=== PATIENT | male | born 1995 | race Caucasian/White ===

== ENCOUNTER 2016-10-13 02:47 | Emergency (ER) | payer OTHER, BC ==
[2016-10-13] MEDS ORDERED: Sodium Chloride 0.9% 10 ML Syringe FLUSH PRN (02:52)
--- NOTE | 2016-10-13 02:52 | EDM.PDOC ---
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 at close follow up with regular provider. Note CPK elevation as above but no direct evidence of significant rhabdomyolysis. Qualifiers: Hematuria type: asymptomatic microscopic Qualified Code(s): R31.21 - Asymptomatic microscopic hematuria - Problem List Review Problem List Initiated/Reviewed/Updated: Yes - My Orders Last 24 Hours: My Active Orders 10/13/16 02:52 Cardiac Monitoring [RC] . DIRECTED EKG Documentation Completion [RC] ASDIRECTED Oxygen Therapy, ED [RC] CONTINUOUS Peripheral IV Care [RC] . DIRECTED Pulse Oximetry [RC] CONTINUOUS Up With Assistance [RC] PFP Vital Signs [RC] PFP Cervical Spine 1V [CR] Stat Cervical Spine wo Cont [CT] Stat Chest 1V Frontal [CR] Stat Head wo Cont [CT] Stat Lumbar Spine 1V [CR] Stat Max Facial Sinus wo Cont [CT] Stat Pelvis 1V or 2V [CR] Stat Sodium Chloride 0.9% [Saline Flush] 10 ml FLUSH ASDIRECTED PRN Obtain Past Medical Record [OM.PC] Urgent Peripheral IV Insertion Adult [OM.PC] Stat Resuscitation Status Stat EKG 12 Lead [EK] Stat 10/13/16 02:57 Vaccines to be Administered [RC] PER UNIT ROUTINE 10/13/16 02:58 Forearm 2V Lt [CR] Stat 10/13/16 05:15 CULTURE URINE [RM] Urgent 10/13/16 Breakfast Nothing per Oral Now Diet [DIET] - Assessment/Plan Last 24 Hours: My Active Orders 10/13/16 02:52 Cardiac Monitoring [RC] . DIRECTED EKG Documentation Completion [RC] ASDIRECTED Oxygen Therapy, ED [RC] CONTINUOUS Peripheral IV Care [RC] . DIRECTED Pulse Oximetry [RC] CONTINUOUS Up With Assistance [RC] PFP Vital Signs [RC] PFP Cervical Spine 1V [CR] Stat Cervical Spine wo Cont [CT] Stat Chest 1V Frontal [CR] Stat Head wo Cont [CT] Stat Lumbar Spine 1V [CR] Stat Max Facial Sinus wo Cont [CT] Stat Pelvis 1V or 2V [CR] Stat Sodium Chloride 0.9% [Saline Flush] 10 ml FLUSH ASDIRECTED PRN Obtain Past Medical Record [OM.PC] Urgent Peripheral IV Insertion Adult [OM.PC] Stat Resuscitation Status Stat EKG 12 Lead [EK] Stat 10/13/16 02:57 Vaccines to be Administered [RC] PER UNIT ROUTINE 10/13/16 02:58 Forearm 2V Lt [CR] Stat 10/13/16 05:15 CULTURE URINE [RM] Urgent 10/13/16 Breakfast Nothing per Oral Now Diet [DIET] Assessment:: As above Plan: As above. Extensive precautions were given to the patient and his girlfriend, who are in agreement with the treatment plan. See Patient Instructions for further treatment and plan.
[2016-10-13] MEDS ORDERED: Diphtheria,Pertussis(Acell),Tetanus Vaccine 0.5 ML SDV IM ONE (02:57)
[2016-10-13] MEDS ORDERED: Bacitracin/Neomycin/Polymyxin B Oint 0.9 GM U/D Packet TOP ONE (02:58)
[2016-10-13 03:22] LABS: CHLORIDE,CL 103 mmol/L (98-107); SODIUM,NA 141 mmol/L (136-145)
[2016-10-13] MEDS ORDERED: Lactated Ringers 1,000 ML IV ONE (03:47)
== END 2016-10-13 06:15 | disposition home or self-care (01) ==
LOC: LL.ED 02:47
DX: S51.812A Laceration without foreign body of left forearm, initial encounter (principal); S61.512A Laceration without foreign body of left wrist, initial encounter; S01.311A Laceration without foreign body of right ear, initial encounter; S50.812A Abrasion of left forearm, initial encounter; S50.811A Abrasion of right forearm, initial encounter; F41.8 Other specified anxiety disorders; M54.2 Cervicalgia; D72.825 Bandemia; R74.8 Abnormal levels of other serum enzymes; R31.9 Hematuria, unspecified; R79.89 Other specified abnormal findings of blood chemistry; F12.90 Cannabis use, unspecified, uncomplicated; F10.129 Alcohol abuse with intoxication, unspecified; M19.90 Unspecified osteoarthritis, unspecified site; F17.200 Nicotine dependence, unspecified, uncomplicated; Z23 Encounter for immunization; Z98.890 Other specified postprocedural states; Z71.6 Tobacco abuse counseling; Y90.7 Blood alcohol level of 200-239 mg/100 ml; V89.2XXA Person injured in unspecified motor-vehicle accident, traffic, initial encounter; Y92.410 Unspecified street and highway as the place of occurrence of the external cause
CPT/HCPCS: 12002; 12011; 36415; 70450; 70486; 71010; 72020; 72125; 72170; 73090; 80053; 80305; 81001; 82150; 82272; 82550; 82553; 83605; 83690; 83735; 84484; 84550; 85025; 85610; 85730; 87086; 90471; 90715; 93005; 96360; 99291; 99292; G0480; J7050; J7120; 12032

== ENCOUNTER 2019-08-16 06:29 | Emergency (ER) | payer SELFPAY ==
[2019-08-16 06:37] VITALS: BP 148/72; PULSE 89
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
[2019-08-16] MEDS: Tetracaine HCl/PF 0.5% 4 ML Bottle EYEBOTH ONE (07:09)
== END 2019-08-16 07:35 | disposition home or self-care (01) ==
LOC: LL.ED 06:29
DX: H57.13 Ocular pain, bilateral (principal); W89.0XXA Exposure to welding light (arc), initial encounter
CPT/HCPCS: 99282; 99283

== ENCOUNTER 2022-07-11 08:14 | Emergency (ER) | payer SELFPAY ==
[2022-07-11 08:19] VITALS: BP 158/97; PULSE 99
[2022-07-11] MEDS ORDERED: Take Home: Acetaminophen/HYDROcodone 325-5 MG, 5 Tab Pack PO ONE (08:24)
[2022-07-11] MEDS ORDERED: Take Home: Amoxicillin/Clavulanate K 875-125 MG Tab, 6 Tab Pack PO ONE (08:45)
[2022-07-11] MEDS ORDERED: Ketorolac 30 MG/ML SDV IM ONE (09:14)
== END 2022-07-11 09:42 | disposition home or self-care (01) ==
LOC: LL.ED 08:14
DX: K04.7 Periapical abscess without sinus (principal)
CPT/HCPCS: 96372; 99282; 99283; A9270-GY; J1885